=== PATIENT | female | born 2000 | race Caucasian/White ===

== ENCOUNTER → 2020-10-28 14:55 | Outpatient (BNVA) | payer BC, SELFPAY | PROVIDERS: Visit Provider Nurse Practitioner Family | DX: B37.9 Candidiasis, unspecified (principal) | CPT/HCPCS: 81000; 87086 ==

== ENCOUNTER → 2021-02-19 13:54 | Outpatient (BNVA) | payer SELFPAY | PROVIDERS: Visit Provider Nurse Practitioner Family | DX: N39.0 Urinary tract infection, site not specified (principal); B37.3 Candidiasis of vulva and vagina | CPT/HCPCS: 81000 ==

== ENCOUNTER → 2021-04-09 13:13 | Outpatient (BNVA) | payer SELFPAY | PROVIDERS: Visit Provider Nurse Practitioner | DX: N39.0 Urinary tract infection, site not specified (principal) | CPT/HCPCS: 81000; 87077; 87086; 87184 ==

== ENCOUNTER → 2021-05-05 15:32 | Outpatient (BNVA) | payer SELFPAY | PROVIDERS: Visit Provider Obstetrics & Gynecology | DX: N92.6 Irregular menstruation, unspecified (principal) | CPT/HCPCS: 82627; 83036; 83525; 84403; 84443 ==

== ENCOUNTER → 2021-08-06 16:25 | Outpatient (BNVA) | payer BC, SELFPAY | PROVIDERS: Visit Provider Family Medicine | DX: B37.9 Candidiasis, unspecified (principal) | CPT/HCPCS: 81000; 87491; 87591; 87661 ==

== ENCOUNTER → 2021-08-19 11:18 | Outpatient (BNVA) | payer BC, SELFPAY | PROVIDERS: Visit Provider Family Medicine | DX: B37.9 Candidiasis, unspecified (principal) | CPT/HCPCS: 36415; 86480; 86706; 86735; 86762; 86765; 86787 ==

== ENCOUNTER 2021-10-07 00:36 | Emergency (ER) | payer BC, MEDICAID, SELFPAY ==
[2021-10-07 00:49] VITALS: BP 139/83; PULSE 95; RESP 18; TEMP 37.1; O2SAT 99; BMI 38.7
--- NOTE | 2021-10-07 00:58 | ED_ITS ---
HPI - Ear Problem General: Chief complaint: Ear Stated complaint: trouble hearing Time Seen by Provider: 10/07/21 00:50 History of Present Illness: Patient comes in today for complaints of decreased hearing out of both ears. Patient had COVID-19 2 weeks ago and seemed to have gotten better but then over the weekend started having problems with her ears. Patient was seen at urgent care clinic within [facility] and was diagnosed with otitis externa. Patient reports minimal to no improvement of symptoms and worsening hearing loss. Associated symptoms: Reports ear or mastoid pain Review of Systems ENMT: Reports: ear or mastoid pain, change in hearing and nasal congestion PFS ED PFSH: Medical History No pertinent past medical history Surgical History History of tonsillectomy Hx of wisdom tooth extraction Family History Father Chronic kidney disease (CKD) Diabetes Hyperlipidemia Hypertension Mother Diabetes Brother Diabetes Denies family history of CAD (coronary artery disease) Clotting disorder Bleeding disorder Cancer Thyroid disease Stroke Social History Smoking and tobacco status: current every day smoker Physical Exam Const: COMMON NORMALS: alert HENMT: NOSE: Nasal discharge present purulent TYMPANIC MEMBRANE: TM abnormal TM laterality: bilateral dull and erythematous Resp: COMMON NORMALS: normal respiratory effort and clear to auscultation bilaterally AUSCULTATION: clear to auscultation bilaterally Cardio: COMMON NORMALS: regular rate and regular rhythm RATE: regular rate RHYTHM: regular rhythm Extremity: COMMON NORMALS: normal to inspection Neuro: SENSORIUM/ORIENTATION: Yes alert Skin: COMMON NORMALS: no rashes or lesions noted GENERAL SKIN EXAM: no rashes or lesions noted Course Vital Signs: Vital signs: Vital Signs Temperature 98.7 F 10/07/21 00:49 Pulse Rate 95 10/07/21 00:49 Respiratory Rate 18 10/07/21 00:49 Blood Pressure 139/83 10/07/21 00:49 Pulse Oximetry 99 10/07/21 00:49 MDM - Ear Medical Decision Making Patient comes in today for complaints of decreased hearing from bilateral ears. On exam both tympanic membranes are erythematous and dull. Right tympanic membrane is retracted while left membrane is bulging. Patient has significant amount of nasal drainage in both nares. Differential diagnosis includes eustachian tube dysfunction, rhinosinusitis, otitis media. Sounds like patient probably has a bacterial infection to her ear secondary to upper respiratory infection from 2 weeks ago. We will treat patient with Augmentin 875 twice daily for 10 days. Patient will also be given a short course of prednisone to help with the swelling and decreased hearing loss to open up the eustachian tubes for more relief of pressure. Patient reported understanding of care plan and need for follow-up or return to the ER. Discharge Plan Discharge Patient Disposition: Home Clinical Impression: Otitis media Qualifiers: Otitis media type: suppurative Chronicity: acute Laterality: bilateral Recurrence: non-recurrent Spontaneous tympanic membrane rupture: without spontaneous rupture Qualified Code(s): H66.003 - Acute suppurative otitis media without spontaneous rupture of ear drum, bilateral Condition: Stable Prescriptions: New Augmentin 875-125 mg tablet 1 tab PO BID Qty: 20 0RF prednisone 20 mg tablet 20 mg PO BID 5 Days Qty: 10 0RF No Action fluconazole [Diflucan] 150 mg tablet 150 mg PO Q3D Qty: 2 0RF Discharge Orders: Discharge ED (Routine); Ordered 10/07/21 Ordered By: Merrill Quiroz Discharge Diet: Usual diet Discharge Activity: Increase activity as tolerated Patient Instructions: Otitis Media - Adult Activity Restrictions/Additional Instructions: Take medications as directed. Drink plenty of fluids. Follow-up with primary care for further instruction. Return to ER for new concerns. Coding Level of Care Code ED Program Consultant for Chg Fwd History Problem Focused Exam Problem Focused Medical Decision Making Low Complexity Time Spent (min) 20
[2021-10-07] MEDS: amoxicillin-clav 875-125 mg Tablet 1 TAB PO (01:22)
[2021-10-07] MEDS: predniSONE 20 mg Tablet 40 MG PO (01:22)
[2021-10-07 01:26] VITALS: RESP 16
== END 2021-10-07 01:27 | disposition home or self-care (01) ==
PROVIDERS: Emergency Provider Nurse Practitioner Family
DX: H66.003 Acute suppurative otitis media without spontaneous rupture of ear drum, bilateral (principal); F17.210 Nicotine dependence, cigarettes, uncomplicated
CPT/HCPCS: 99283; J7512

== ENCOUNTER 2022-09-10 11:24 | Emergency (ER) | payer BC, MEDICAID, SELFPAY ==
[2022-09-10 11:50] VITALS: BP 157/73; PULSE 88; RESP 16; TEMP 36.6; O2SAT 98
[2022-09-10 13:16] LABS: Alanine Aminotransferase 19 U/L (0-33); Alkaline Phosphatase 117 U/L (35-105); Anion Gap 15.5 (5-19); Aspartate Amino Transferase 18 U/L (0-32); Blood Urea Nitrogen 8 mg/dL (6-20); Calcium 9.9 mg/dL (8.5-10.5); Carbon Dioxide 23 mmol/L (22-29); Chloride 102 mmol/L (98-107); Globulin 3.8 g/dL (1.3-4.6); Glomerular Filtration Rate 154.3 mL/min (90-130); Glucose 128 mg/dL (65-115); Osmolality Calculated 284 mOsm/kg (285-295); Potassium 3.5 mmol/L (3.5-5.1); Sodium 137 mmol/L (136-145); Total Bilirubin 0.2 mg/dL (0.15-1.2); Total Protein 7.8 g/dL (6.6-8.7)
--- NOTE | 2022-09-10 13:39 | PC.NURSE ---
PT IS STANDING IN LOBBY IN [facility].
[2022-09-10 15:05] LABS: HCG, Serum Qual Negative (Negative)
[2022-09-10 15:10] VITALS: BP 129/93; PULSE 104; RESP 14; O2SAT 99
[2022-09-10 15:16] LABS: Basophils % 0.4 %; Eosinophils # 0.2 10^3/uL (0.0-0.8); Hematocrit 37.9 % (37.0-47.0); Hemoglobin 10.9 g/dL (11.5-15.3); Lymphocytes # 4.6 10^3/uL (0.8-4.8); Lymphocytes % 43.3 %; Mean Corpuscular HGB Conc 28.8 g/dL (30.0-36.0); Mean Corpuscular Hemoglobin 22.1 pg (28.0-34.0); Mean Corpuscular Volume 76.9 fl (81-99); Mean Platelet Volume 10.4 fL (7.4-10.4); Monocytes # 0.4 10^3/uL (0.2-0.9); Monocytes % 3.4 %; Neutrophils # 5.32 10^3/uL (1.8-7.7); Neutrophils % 50.6 %; Nucleated Red Blood Cells % 0 %; Platelet Count 434 10^3/cmm (130-400); Red Blood Count 4.93 10^6/uL (4.1-5.3); Red Cell Distribution Width 17.2 % (12.1-15.1); White Blood Count 10.5 10^3/uL (4.0-10.0)
[2022-09-10 15:40] VITALS: BP 120/83; PULSE 88; RESP 19; O2SAT 94
[2022-09-10 15:40] LABS: Slide Review Slide Review Perform
[2022-09-10 15:45] LABS: HCG Qualitative Urine. Negative (Negative)
[2022-09-10 15:51] LABS: Add Urine Microscopic? YES; Bilirubin Urine Neg (Negative); Blood Urine 3+ (Negative); Glucose Urine UA Norm (Normal); Ketones Urine Negative (Negative); Leukocyte Esterase Urine Negative (Negative); Nitrate Urine Negative (Negative); Protein Urine Trace (Negative); Urine Appearance Hazy (CLEAR); Urine Color Yellow (Yellow); Urobilinogen Urine Norm (Negative); pH Urine 6 (5-7)
[2022-09-10 15:52] VITALS: BP 116/77; PULSE 91; RESP 16; O2SAT 96
--- NOTE | 2022-09-10 15:53 | USR_ITS ---
PROCEDURE INFORMATION: Exam: US Pelvis, Transvaginal Exam date and time: 09/10/2022 4:14 PM Age: 22 years old Clinical indication: Menstruation abnormalities; Excessive menstruation; Additional info: Vag bleed TECHNIQUE: Imaging protocol: Real-time transvaginal pelvic ultrasound with image documentation. Transvaginal imaging was used for better evaluation of the endometrium, adnexa, and/or cervix. COMPARISON: No relevant prior studies available. FINDINGS: Uterus: The uterus measures 9.1 x 3.3 x 5.1 cm. No uterine mass. Endometrial stripe measures 8 mm within normal limits. Right ovary/adnexa: Right ovary measures 3.8 x 4.3 x 2.4 cm with an estimated ovarian volume of 20 cc. Multiple peripheral ovarian follicles noted. Normal ovarian blood flow. Left ovary/adnexa: Left ovary measures 4.7 x 2.6 x 4.0 cm with an estimated ovarian volume of 26 cc. Multiple peripheral ovarian follicles noted. Normal ovarian blood flow. Intraperitoneal space: No free fluid. US/US transvaginal [id number] IMPRESSION: 1. No acute findings. 2. Enlarged ovaries with multiple ovarian follicles compatible with known history of polycystic ovarian syndrome.
[2022-09-10 15:54] LABS: Bacteria Urine 2+ /hpf; Mucus Urine 1+ /hpf; Squamous Epithelial Cell Urine 15-25 /hpf (0-5); WBC Urine RARE /hpf (0-5)
[2022-09-10 15:55] LABS: Add Urine Culture? No
[2022-09-10 16:00] VITALS: BP 116/89; O2SAT 98
[2022-09-10 17:05] VITALS: PULSE 94; RESP 16; O2SAT 98
--- NOTE | 2022-09-10 17:53 | W.ED.FEMALGU ---
HPI - Female Genitourinary General: Chief complaint: Vaginal Bleeding Stated complaint: vaginal bleeding 2xmonths Time Seen by Provider: 09/10/22 12:14 History of Present Illness: 35 yo female patient presents to ER with off and on vaginal bleeding x 2 months. Pt has hx of PCOS and was suppose to have US but has not done that yet. Pt denies any vaginal pain or abd pain. Pt states she has had some dizziness and tiredness from bleeding. Pt denies any fever, chest pain or SOB. Associated symptoms: Deny abdominal pain, headache(s) or nausea Review of Systems Const: Denies: fever(s), chills, body aches, change in appetite, change in weight, fatigue, malaise or diaphoresis GI: Denies: abdominal pain, nausea, vomiting, hematemesis, dysphagia, diarrhea, constipation, GI cramping, change in bowel habits or rectal pain : Denies: flank pain, difficulty voiding, dysuria, urinary frequency, urinary urgency, urinary hesitancy or hematuria Musc: Denies: neck pain, back pain, extremity pain, extremity swelling, joint pain, joint swelling, joint redness, joint warmth or deformity Skin/Breast: Denies: rash, pruritus, erythema, sores, new lesions, changes in skin color or dry skin Neuro: Denies: headache(s), numbness in extremities, weakness in extremities, sensory changes, lack of coordination, difficulty walking, frequent falls, dizziness, vertigo, confusion, behavioral changes, Slurred speech present, difficulty communicating thoughts or seizure-like activity Psych: Denies: anxiety, depression, suicidal ideation or homicidal ideation PFS ED PFSH: Medical History No pertinent past medical history Surgical History History of tonsillectomy Hx of wisdom tooth extraction Family History Father Chronic kidney disease (CKD) Diabetes Hyperlipidemia Hypertension Mother Diabetes Brother Diabetes Denies family history of CAD (coronary artery disease) Clotting disorder Bleeding disorder Cancer Thyroid disease Stroke Social History Smoking and tobacco status: current every day smoker Physical Exam Const: COMMON NORMALS: no acute distress, patient oriented x3, healthy appearing, alert and well nourished GENERAL APPEARANCE: cooperative, comfortable, well kempt and well developed; not ill appearing ORIENTATION/CONSCIOUSNESS: Yes awake, Yes oriented to person, Yes oriented to place and Yes oriented to time GI: COMMON NORMALS: Normal to inspection, nondistended, normoactive bowel sounds present, Soft to palpation, non-tender, No hepatosplenomegaly present, no masses and no bruits INSPECTION: Yes normal to inspection AUSCULTATION: Yes normoactive bowel sounds PALPATION: Yes Soft to palpation and Yes No hepatosplenomegaly present PERCUSSION: normal to percussion RECTAL EXAM: deferred : COMMON NORMALS: Yes no CVA tenderness BLADDER/KIDNEY EXAM: Yes no CVA tenderness Back/Pelvis: COMMON NORMALS: no CVA tenderness, thoracic and lumbar spine normal to inspection, no thoracic nor lumbar tenderness and thoraco-lumbar ROM normal THORACIC SPINE/UPPER BACK: Yes normal to inspection LUMBAR SPINE/LOWER BACK: Yes normal to inspection Extremity: COMMON NORMALS: normal to inspection, full ROM and capillary refill normal GENERAL: Yes normal exam except as noted Neuro: COMMON NORMALS: patient oriented x3, CN's II-XII intact bilaterally, moves all extremities, no focal motor deficits, no sensory deficits noted, deep tendon reflexes 2+ bilaterally and gait normal SENSORIUM/ORIENTATION: Yes alert, Yes oriented to person, Yes oriented to place and Yes oriented to time CRANIAL NERVES: Yes CN normal except as noted SPEECH: speech normal GAIT: Yes Normal gait present SENSORY EXAM: Yes extremities MOTOR EXAM: 5/5 motor strength present throughout Psych: COMMON NORMALS: mental status grossly normal, Normal thought process present, cooperative, normal affect, speech normal, activity/motor behavior normal, denies hallucinations, denies homicidal ideation and denies suicidal ideation APPEARANCE: Yes grossly normal and Yes well kempt ATTITUDE: Yes calm ACTIVITY/MOTOR BEHAVIOR: Yes appropriate eye contact SPEECH: Yes normal speech THOUGHT PROCESS: Normal thought process present THOUGHT CONTENT: Yes Normal thought content present ATTENTION/CONCENTRATION: Yes attention grossly intact MEMORY/COGNITION: Yes memory grossly intact INSIGHT: Good insight present (Psych) JUDGEMENT: Good judgement present (Psych) Skin: COMMON NORMALS: no rashes or lesions noted, no wounds, turgor normal, no jaundice, no petechiae and no mottling GENERAL SKIN EXAM: no rashes or lesions noted and turgor normal Course Vital Signs: Vital signs: Vital Signs Temperature 97.9 F 09/10/22 11:50 Pulse Rate 94 09/10/22 17:05 Respiratory Rate 16 09/10/22 17:05 Blood Pressure 116/89 09/10/22 16:00 Pulse Oximetry 98 09/10/22 17:05 Oxygen Delivery Me thod 09/10/22 15:10 MDM - Female Medical Decision Making 35 yo female patient presents to ER with off and on vaginal bleeding x 2 months. Pt has hx of PCOS and was suppose to have US but has not done that yet. Pt denies any vaginal pain or abd pain. Pt states she has had some dizziness and tiredness from bleeding. Pt denies any fever, chest pain or SOB. Pt H&H are stable. Urine is without evidence of infection. US reveals findings c/w PCOS. Pt has follow up scheduled with TOOL SETTER APPRENTICE I will have patient have H&H rechecked. Pts abd is soft and nontender. Lab Data 09/10/22 15:08 09/10/22 12:37 Radiology Impressions Transvaginal US 09/10/22 15:53 IMPRESSION: 1. No acute findings. 2. Enlarged ovaries with multiple ovarian follicles compatible with known history of polycystic ovarian syndrome. Laboratory Results WBC 10.5 10^3/uL (4.0-10.0) H 09/10/22 15:08 Corrected WBC Cancelled 09/10/22 12:37 RBC 4.93 10^6/uL (4.1-5.3) 09/10/22 15:08 Hgb 10.9 g/dL (11.5-15.3) L 09/10/22 15:08 Hct 37.9 % (37.0-47.0) 09/10/22 15:08 MCV 76.9 fl (81-99) L 09/10/22 15:08 MCH 22.1 pg (28.0-34.0) L 09/10/22 15:08 MCHC 28.8 g/dL (30.0-36.0) L 09/10/22 15:08 RDW 17.2 % (12.1-15.1) H 09/10/22 15:08 Plt Count 434 10^3/cmm (130-400) H 09/10/22 15:08 MPV 10.4 fL (7.4-10.4) 09/10/22 15:08 Gran % Cancelled 09/10/22 12:37 Neut % (Auto) 50.6 % 09/10/22 15:08 Lymph % (Auto) 43.3 % 09/10/22 15:08 [place] % (Auto) 3.4 % 09/10/22 15:08 Eos % (Auto) 2.0 % 09/10/22 15:08 Baso % (Auto) 0.4 % 09/10/22 15:08 Neut # (Auto) 5.32 10^3/uL (1.8-7.7) 09/10/22 15:08 Lymph # (Auto) 4.6 10^3/uL (0.8-4.8) 09/10/22 15:08 [place] # (Auto) 0.4 10^3/uL (0.2-0.9) 09/10/22 15:08 Eos # (Auto) 0.2 10^3/uL (0.0-0.8) 09/10/22 15:08 Baso # (Auto) 0.0 10^3/uL (0.0-0.1) 09/10/22 15:08 Absolute Gran (auto) Cancelled 09/10/22 12:37 Nucleated RBC % (auto) 0 % 09/10/22 15:08 Nucleated RBCs # 0.0 /100WBC 09/10/22 15:08 Sodium 137 mmol/L (136-145) 09/10/22 12:37 Potassium 3.5 mmol/L (3.5-5.1) 09/10/22 12:37 Chloride 102 mmol/L (98-107) 09/10/22 12:37 Carbon Dioxide 23 mmol/L (22-29) 09/10/22 12:37 Anion Gap 15.5 (5-19) 09/10/22 12:37 BUN 8 mg/dL (6-20) 09/10/22 12:37 Creatinine 0.5 mg/dL (0.5-0.9) 09/10/22 12:37 GFR Calculation 154.3 mL/min (90-130) H 09/10/22 12:37 Glucose 128 mg/dL (65-115) H 09/10/22 12:37 Calculated Osmolality 284 mOsm/kg (285-295) L 09/10/22 12:37 Calcium 9.9 mg/dL (8.5-10.5) 09/10/22 12:37 Total Bilirubin 0.2 mg/dL (0.15-1.2) 09/10/22 12:37 AST 18 U/L (0-32) 09/10/22 12:37 ALT 19 U/L (0-33) 09/10/22 12:37 Alkaline Phosphatase 117 U/L (35-105) H 09/10/22 12:37 Total Protein 7.8 g/dL (6.6-8.7) 09/10/22 12:37 Albumin 4.0 g/dL (3.5-5.2) 09/10/22 12:37 Globulin 3.8 g/dL (1.3-4.6) 09/10/22 12:37 HCG, Qual Negative (Negative) 09/10/22 15:37 Urine Color Yellow (Yellow) 09/10/22 15:37 Urine Appearance Hazy (CLEAR) A 09/10/22 15:37 Urine pH 6 (5-7) 09/10/22 15:37 Ur Specific [place] 1.010 (1.005-1.030) 09/10/22 15:37 Urine Protein Trace (Negative) 09/10/22 15:37 Urine Glucose (UA) Norm (Normal) 09/10/22 15:37 Urine Ketones Negative (Negative) 09/10/22 15:37 Urine Blood 3+ (Negative) H 09/10/22 15:37 Urine Nitrate Negative (Negative) 09/10/22 15:37 Urine Bilirubin Neg (Negative) 09/10/22 15:37 Urine Urobilinogen Norm mg/dL (Negative) 09/10/22 15:37 Ur Leukocyte Esterase Negative (Negative) 09/10/22 15:37 Urine RBC 5-10 /hpf (0-2) H 09/10/22 15:37 Urine WBC Rare /hpf (0-5) 09/10/22 15:37 Ur Squamous Epith Cells 15-25 /hpf (0-5) H 09/10/22 15:37 Amorphous Sediment Not Reportable 09/10/22 15:37 Urine Bacteria 2+ /hpf (NONE) H 09/10/22 15:37 Urine Mucus 1+ /hpf 09/10/22 15:37 Blood Type B Positive 09/10/22 12:37 Rho(D) Type Positive 09/10/22 12:37 Antibody Screen Negative 09/10/22 12:37 Discharge Plan Discharge Patient Disposition: Home Clinical Impression: PCOS (polycystic ovarian syndrome) Condition: Stable Prescriptions: No Action fluconazole [Diflucan] 150 mg tablet 150 mg PO Q3D Qty: 2 0RF Discharge Orders: Discharge ED (Routine); Ordered 09/10/22 Ordered By: Ann Meyers Discharge Diet: Advance as tolerated Discharge Activity: Increase activity as tolerated Patient Instructions: Abnormal (Dysfunctional) Uterine Bleeding (ED), Opioid Safety, Pain Management Activity Restrictions/Additional Instructions: Please follow up with TOOL SETTER APPRENTICE for recheck Please return to ER with any worsening of symptoms as provided on discharge instructions Coding Level of Care Code ED Continuous Improvement Analyst for Bhavya Licona
== END 2022-09-10 17:07 | disposition home or self-care (01) ==
PROVIDERS: Emergency Provider Registered Nurse
DX: E28.2 Polycystic ovarian syndrome (principal); F17.210 Nicotine dependence, cigarettes, uncomplicated
CPT/HCPCS: 36415; 76830; 80053; 81001; 81025; 84703; 85025; 86850; 86900; 99284

== ENCOUNTER 2022-09-16 09:00 | Outpatient (CLI) | payer BC, MEDICAID, SELFPAY ==
[2022-09-16 10:13] LABS: Thyroid Stimulating Hormone 3.53 uIU/mL (0.27-4.20)
[2022-09-18 14:35] LABS: Insulin ( Reference Lab Test) 54.5 uIU/mL
== END 2022-09-16 09:01 | disposition home or self-care (01) ==
PROVIDERS: Visit Provider Obstetrics & Gynecology
DX: E66.01 Morbid (severe) obesity due to excess calories (principal); N92.6 Irregular menstruation, unspecified; Z68.41 Body mass index [BMI] 40.0-44.9, adult
CPT/HCPCS: 36415; 83525; 84443

== ENCOUNTER 2022-10-17 08:14 | Outpatient (CLI) | payer BC, MEDICAID, SELFPAY ==
[2022-10-17 09:14] LABS: Thyroid Stimulating Hormone 2.63 uIU/mL (0.27-4.20)
== END 2022-10-17 08:15 | disposition home or self-care (01) ==
LOC: LAB 08:18
PROVIDERS: Visit Provider Obstetrics & Gynecology
DX: E16.1 Other hypoglycemia (principal); E66.01 Morbid (severe) obesity due to excess calories; Z68.41 Body mass index [BMI] 40.0-44.9, adult
CPT/HCPCS: 36415; 84443

== ENCOUNTER 2022-11-21 11:19 | Day surgery (SDC) | payer BC, MEDICAID, SELFPAY ==
[2022-11-20 08:11] VITALS: BMI 40.3
[2022-11-21] VITALS (8 sets, daily range): BP systolic 99–133; BP diastolic 62–82; PULSE 82–98; RESP 14–20; TEMP 36.1–36.8; O2SAT 95–99
[2022-11-21] MEDS: sodium chloride 0.9% 1,000 ML 30 ML IV (11:44)
--- NOTE | 2022-11-21 11:54 | W.PM.OPSUD ---
Surgery/Procedure H&P Update DATE OF PROCEDURE: November 21, 2022 DATE H&P PERFORMED: 11/16/22 H&P UPDATE INFORMATION: I have reviewed H&P completed within last 30 days, I have examined patient prior to procedure and No changes to prior documentation PREOP DIAGNOSIS: AUB, morbid obesity PLANNED PROCEDURE: Operation Date: 11/21/22 13:55 Proposed Procedures p Hysteroscopy, dilation and curettage with Antoinette [id number], [id number],N93.9(Not Applicable) - Bianca Davis MD s Dilation And Curettage (D&C)(Not Applicable) - Bianca Davis MD Related Problem List Diagnoses (1) Abnormal uterine bleeding (AUB): (2) Morbid obesity with BMI of 40.0-44.9, adult:
--- NOTE | 2022-11-21 12:51 | ANES.PREANE2 ---
Pre-Anesthetic Assessment Height/Weight: Height 1.68 m Weight 113.398 kg Temp Pulse Resp BP Pulse Ox O2 Del Method 97.1 F L 98 18 99/76 99 11/21/22 11:34 11/21/22 11:34 11/21/22 11:34 11/21/22 11:34 11/21/22 11:34 11/21/22 11:36 Preop Diagnosis: AUB, morbid obesity Operation Date: 11/21/22 13:55 Proposed Procedures p Hysteroscopy, dilation and curettage with [place]re [id number], [id number],N93.9(Not Applicable) - Bianca Davis MD s Dilation And Curettage (D&C)(Not Applicable) - Bianca Davis MD Familial anesthetic complications: none Was Beta Ava taken within 24 hours: N/A Was Clonidine taken within 24 hours: N/A Last intake: Intake Last Liquid Date 11/20/22 Last Liquid Time 23:00 Last Solid Date 11/20/22 Last Solid Time 19:00 Social No alcohol and No tobacco Exam alert, oriented x 3, clear to auscultation bilaterally and regular rate & rhythm Airway Submandibular: within normal limits Cervical ROM: within normal limits Mallampati: Class II Dentition: full Metabolic Morbid Obesity and Thyroid Disease Anesthetic Plan ASA status: 2 Anesthesia: General Medications/Allergies Home Medications Medication Instructions Recorded Confirmed Last Taken Type levothyroxine 50 mcg capsule 50 mcg PO DAILY #90 caps 09/22/22 11/20/22 11/20/22 Rx Allergies Allergy/AdvReac Type Severity Reaction Status Date / Time No Known Allergies Allergy Verified 11/21/22 11:42 Current Medications Generic Name Dose Route Start Last Admin Trade Name Freq PRN Reason Stop Dose Admin Sodium Chloride 1,000 mls @ 30 mls/hr 11/21/22 11:30 11/21/22 11:44 Sodium Chloride 0.9% IV 11/22/22 11:29 30 mls/hr .Q24H EMILEE Administration PFSH Anesthesia Medical History No pertinent past medical history Surgical History History of tonsillectomy Hx of wisdom tooth extraction Family History Father Diabetes Hypertension Mother Diabetes Brother Diabetes Denies family history of Colon cancer Ovarian cancer Heart disease Hypercholesteremia Breast cancer Uterine cancer Thyroid disease Stroke Female Reproductive History Date of last menstrual period: 11/10/22 Data Anesthesia Cardiac Studies: No Data to Display
[2022-11-21] MEDS: ceFAZolin 2,000 MG in sodium chloride 0.9% (plus) 50 ML 100 MG IV (13:05)
--- NOTE | 2022-11-21 14:01 | P.OP_ITS ---
Operative Report Date of procedure: November 21, 2022 Pre-op diagnosis: Preop Diagnosis AUB, morbid obesity Post-op diagnosis: same Post-op diagnosis: multiple polyps in the endometrium Procedure done: hysteroscopy, D&C, myosure Specimens removed/disposition: endometrial curettings to pathology Surgeon: Bianca Davis Anesthesia: General Estimated blood loss (mL): 5 IV fluids (mL): 800 Complications: none Findings: 9 week sized uterus 1400 ml of hysteroscopy deficit multiple endometrial polyps Condition: stable Disposition: PACU Procedure: The patient was taken to the operating room where monitored anesthesia was administered and to be adequate. She was prepped and draped in the normal preethi rile fashion in the dorsal lithotomy position in [facility]. A weighted speculum was placed into the vagina and the anterior lip of the cervix grasped with a single-tooth tenaculum. The uterus was sounded to 9 cm. The cervix was dilated to 16 [place]. The hysteroscope was advanced into the endometrial cavity. There were multiple polyps visualized. The MyoSure device was activated and the tissue was removed. Pictures were taken pre and post procedure. All instruments were removed. The patient tolerated the procedure well. Sponge lap and needle counts were correct x3. She was taken to the recovery room in stable condition.
--- NOTE | 2022-11-21 14:06 | PM.DCS ---
Discharge Providers Date of Admission: 11/21/22 Date of Discharge: November 21, 2022 Attending Provider at Admission: Dr. Davis Attending Provider at Discharge: Bianca Davis MD Diagnoses at Discharge Discharge Diagnosis (1) Abnormal uterine bleeding (AUB): Status: Acute (2) Morbid obesity with BMI of 40.0-44.9, adult: Status: Acute Reason for Visit Reason for Visit: N93.9 Hospital Course Hospital Course The patient is here for surgery. She did well postoperatively and was ready for discharge postoperatively. Discharge Data Studies Completed and Pending Pending at discharge Category Date Time Status Pathology: Surgical [PTH] Routine Pth 11/21/22 13:51 Ordered Vitals Last Vital Signs Temp 97.1 F L 11/21/22 11:34 Pulse 98 11/21/22 11:34 Resp 18 11/21/22 11:34 BP 99/76 11/21/22 11:34 Pulse Ox 99 11/21/22 11:34 O2 Del Method 11/21/22 11:36 Discharge Plan Discharge Condition: Stable Prescriptions: Continued levothyroxine 50 mcg capsule 50 mcg PO DAILY Qty: 90 4RF Discharge Orders: Discharge Order (Routine); Ordered 11/21/22 Ordered By: Bianca Davis Discharge Attestations Time Spent in Discharge Care*: less than 30 min Quality Metrics Clinical Quality Measures [ No reported AMI, CVA or VTE this stay] Coding Level of Care Code Acute Code for Chg Fwd Diagnoses Abnormal uterine bleeding (AUB) N93.9 Morbid obesity with BMI of 40.0-44.9, adult E66.01; Z68.41
--- NOTE | 2022-11-21 15:31 | ANE.PACU2 ---
Inpatient post-anesthesia follow up: Airway intact: Yes Vital signs: Temperature 97.6 F Pulse Rate 91 Respiratory Rate 14 Blood Pressure 113/75 Pulse Oximetry 99 Oxygen Delivery Me thod Room Air Oxygen Flow Rate Fraction of Inspir ed Oxygen Hydration adequate: Yes Nausea and vomiting: No Pain level: 3 Mental status: Baseline
== END 2022-11-21 15:15 | disposition home or self-care (01) ==
PROVIDERS: Visit Provider Obstetrics & Gynecology
PROC: 0UDB8ZZ Extraction of Endometrium, Via Natural or Artificial Opening Endoscopic (ICD-10-PCS; CPT 58558; principal; 2022-11-21 13:45)
PROC: (CPT 58120; 2022-11-21 13:45)
DX: N84.0 Polyp of corpus uteri (principal); E07.9 Disorder of thyroid, unspecified; E66.01 Morbid (severe) obesity due to excess calories; Z68.41 Body mass index [BMI] 40.0-44.9, adult
CPT/HCPCS: 58558; 81025; 88305; J0330; J0690; J1100; J1885; J2405; J2704; J3010; J7030

== ENCOUNTER 2023-07-05 02:05 | Emergency (ER) | payer BC, MEDICAID, SELFPAY ==
[2023-07-05 02:13] VITALS: BP 161/89; PULSE 122; RESP 16; O2SAT 94; BMI 37.1
[2023-07-05 02:20] VITALS: BP 161/89; PULSE 117; RESP 16; O2SAT 98
--- NOTE | 2023-07-05 02:39 | W.ED.ALLEREA ---
HPI - Allergic Reaction General: Chief complaint: Allergic Reaction Stated complaint: hives Time Seen by Provider: 07/05/23 02:12 History of Present Illness: HPI narrative: Patient presents to the ER with complaints of generalized hives and itching. Patient's never had episode like this before. Patient states she went to bed about 1:00 and woke up with this. Patient does states she drank an alcoholic drink that that this was the first time she ever drink anything like this. Patient denies any shortness of breath or problems swallowing. Review of Systems General: Reports: 10 or more systems reviewed and unremarkable except in HPI and below PFSH ED PFSH: Medical History No pertinent past medical history Surgical History History of tonsillectomy Hx of wisdom tooth extraction Family History Father Diabetes Hypertension Mother Diabetes Brother Diabetes Denies family history of Colon cancer Ovarian cancer Heart disease Hypercholesteremia Breast cancer Uterine cancer Thyroid disease Stroke Physical Exam Const: COMMON NORMALS: no acute distress, average body habitus, patient oriented x3, no limitations, healthy appearing, alert and well nourished HENMT: COMMON NORMALS: normocephalic, atraumatic, hearing grossly normal bilaterally, external ears normal, Normal external nose present, moist oral mucous membranes and oropharynx normal HEAD & SCALP: normocephalic and atraumatic NOSE: Normal external nose present EXTERNAL EAR: Yes external ears normal Eye: COMMON NORMALS: Equal, round and reactive pupils present, EOMs intact bilaterally, conjunctivae normal and no scleral icterus CONJUNCTIVA: Yes conjunctivae normal PUPIL: Yes Equal, round and reactive pupils present Neck/C-Spine: COMMON NORMALS: full ROM, no lymphadenopathy, supple, no meningeal signs, no JVD and Thyroid normal THYROID: Thyroid normal Lymph: LYMPHATIC: no lymphadenopathy noted Chest: COMMONS NORMALS: normal inspection of the chest and normal palpation of entire chest wall Resp: COMMON NORMALS: normal respiratory effort, No retractions, No use of accessory muscles and clear to auscultation bilaterally AUSCULTATION: clear to auscultation bilaterally Cardio: COMMON NORMALS: no JVD, regular rate, regular rhythm, S1 normal heart sound present, S2 normal heart sound present, No gallops present (Cardio), No clicks present (Cardio), No murmurs present (Cardio) and No rub (Cardio) RATE: regular rate RHYTHM: regular rhythm HEART SOUNDS: S1 normal heart sound present and S2 normal heart sound present GI: COMMON NORMALS: Normal to inspection, nondistended, normoactive bowel sounds present, Soft to palpation, non-tender, No hepatosplenomegaly present and no masses PALPATION: Yes Soft to palpation and Yes No hepatosplenomegaly present Neuro: COMMON NORMALS: patient oriented x3 SENSORIUM/ORIENTATION: Yes alert MENINGEAL SIGNS: Yes no meningeal signs Skin: NARRATIVE SKIN EXAM: Mild raised hives noted diffusely worse on chest abdomen and back. Course Vital Signs: Vital signs: Vital Signs Pulse Rate 115 H 07/05/23 03:10 Respiratory Rate 16 07/05/23 03:10 Blood Pressure 161/89 07/05/23 02:20 Pulse Oximetry 99 07/05/23 03:10 Oxygen Delivery Me thod Room Air 07/05/23 03:10 MDM - Allergic Reaction Medical Decision Making Patient presents to the ER with an unknown reaction which caused generalized hives. Patient was given 10 mg Decadron and 50 mg Benadryl IM. After a significant amount of time. Patient was rechecked patient is feeling much better and is ready to go home. Patient asking about a note for work. Differential Diagnosis Likely allergic reaction and urticaria; Unlikely anaphylaxis, angioedema, contact dermatitis, adverse reaction to drug or viral enanthem Medical Records I reviewed the patient's medical records. Lab Data I reviewed the patient's lab results. No radiology studies performed this visit Discharge Plan Discharge Patient Disposition: Home Clinical Impression: Urticaria Condition: Stable Prescriptions: No Action nystatin 100,000 unit/mL suspension 5 ml PO QID 10 Days Qty: 200 0RF Rx Instructions: swish and swallow levothyroxine 50 mcg capsule 50 mcg PO DAILY Qty: 90 4RF Discharge Orders: Discharge ED (Routine); Ordered 07/05/23 Ordered By: Junior Emanuel Patient Instructions: Urticaria (ED) Activity Restrictions/Additional Instructions: Please continue to use [id number] Benadryl as needed for your hives. Please follow-up with your family practice physician within the next 7 to 10 days or sooner as needed. Coding Level of Care Code ED Part Time Flexible Clerk for Bhavya Licona
[2023-07-05] MEDS: dexamethasone 10 mg/mL INJ IM (02:50)
[2023-07-05] MEDS: diphenhydrAMINE 50 mg/mL SDV 1mL IM (02:50)
[2023-07-05 03:10] VITALS: PULSE 115; RESP 16; O2SAT 99
[2023-07-05 03:30] VITALS: BP 117/70; PULSE 115; RESP 16; O2SAT 99
== END 2023-07-05 03:33 | disposition home or self-care (01) ==
PROVIDERS: Emergency Provider Emergency Medicine
DX: L50.9 Urticaria, unspecified (principal)
CPT/HCPCS: 96372; 99284; J1100; J1200

== ENCOUNTER → 2024-05-19 12:49 | Outpatient (BNVA) | payer OTHER, BC, MEDICAID, SELFPAY | PROVIDERS: Visit Provider Internal Medicine | DX: E11.9 Type 2 diabetes mellitus without complications (principal); E16.1 Other hypoglycemia | CPT/HCPCS: 36415; 80053; 80061; 83036 ==

== ENCOUNTER 2024-05-20 08:20 | Outpatient (CLI) | payer OTHER, BC, MEDICAID, SELFPAY ==
[2024-05-20 09:00] LABS: Creatinine Urine, Random 169 mg/dL (28-217); Microalbum Creatinine Ratio Ur 30 mg/dL (0-20); Microalbumin Random Urine 5 ug/dL (0-20)
== END 2024-05-20 08:21 | disposition home or self-care (01) ==
PROVIDERS: PCP Nurse Practitioner Family; Visit Provider Internal Medicine
DX: E11.9 Type 2 diabetes mellitus without complications (principal); E16.1 Other hypoglycemia
CPT/HCPCS: 82044

== ENCOUNTER → 2024-05-25 13:39 | Outpatient (BNVA) | payer OTHER, BC, MEDICAID, SELFPAY | PROVIDERS: PCP Nurse Practitioner Family; Visit Provider Registered Nurse Neonatal Intensive Care | DX: Z20.822 Contact with and (suspected) exposure to COVID-19 (principal) | CPT/HCPCS: 87426 ==

== ENCOUNTER 2024-07-12 17:25 | Emergency (ER) | payer OTHER, MEDICAID, SELFPAY ==
[2024-07-12 17:29] VITALS: BP 122/76; PULSE 108; RESP 17; TEMP 36.3; O2SAT 98; BMI 37.1
--- NOTE | 2024-07-12 17:54 | CTR_ITS ---
PROCEDURE INFORMATION: Exam: CT Abdomen And Pelvis Without Contrast Exam date and time: 07/12/2024 6:22 PM Age: 24 years old Clinical indication: Nausea and vomiting; Abdominal pain; Generalized; Patient HX: Diffuse abd pain with n/v x 3 days TECHNIQUE: Imaging protocol: Computed tomography of the abdomen and pelvis without contrast. Axial, coronal and sagittal reformatted images were created and reviewed. Radiation optimization: All CT scans at this facility use at least one of these dose optimization techniques: automated exposure control; mA and/or kV adjustment per patient size (includes targeted exams where dose is matched to clinical indication); or iterative reconstruction. COMPARISON: US transvaginal [id number] 09/10/2022 4:14 PM RADIATION DOSE METRICS: Total DLP (mGy-cm): 1218.96 FINDINGS: Liver: Marked hepatomegaly. Diffuse hepatic steatosis. Gallbladder and biliary ducts: No radiodense gallstones. No biliary ductal dilatation. Pancreas: Unremarkable. Spleen: Mild splenomegaly. Adrenal glands: Normal. No mass. Kidneys and ureters: Horseshoe kidney. No radiodense calculi. No hydronephrosis. Stomach and bowel: No bowel wall thickening. No obstruction. No pneumatosis. Appendix: Normal. Intraperitoneal space: No free fluid. No organized fluid collection. No free air. Vasculature: Unremarkable. No aneurysm. Lymph nodes: Small mesenteric lymph nodes, nonspecific in appearance. No pathologically enlarged lymph nodes. Urinary bladder: Unremarkable as visualized. Reproductive: Unremarkable. Bones/joints: No acute osseous abnormality. Mild degenerative changes. Bilateral L5 pars defects with grade 1 anterolisthesis of L5 on S1. Soft tissues: Unremarkable. CT/CT abdomen pelvis wo con [id number] IMPRESSION: 1. Markedly enlarged, fatty liver. 2. Mild splenomegaly. 3. Additional findings, as above.
[2024-07-12 18:28] LABS: Basophils % 0.2 %; Eosinophils # 0.2 10^3/uL (0.0-0.8); Eosinophils % 1.4 %; Hematocrit 39.6 % (36-47); Lymphocytes # 2.6 10^3/uL (0.8-4.8); Lymphocytes % 18.9 %; Mean Corpuscular HGB Conc 30.3 g/dL (30-55); Mean Corpuscular Hemoglobin 23.5 pg (27-33); Mean Corpuscular Volume 77.5 fl (85-98); Mean Platelet Volume 9.9 fL (7.4-10.4); Monocytes # 0.4 10^3/uL (0.2-0.9); Neutrophils # 10.63 10^3/uL (1.8-7.7); Neutrophils % 76.2 %; Nucleated Red Blood Cells % 0 %; Platelet Count 416 10^3/cmm (157-399); Red Blood Count 5.11 10^6/uL (3.85-5.65); Red Cell Distribution Width 15.8 % (12.1-15.1); White Blood Count 13.95 10^3/uL (3.29-11.43)
[2024-07-12 18:42] LABS: HCG, Serum Qual Negative (Negative)
[2024-07-12] MEDS: sodium chloride 0.9% 1,000 ML 999 ML IV (18:44)
[2024-07-12] MEDS: ketorolac 30 mg/mL INJ IVP (18:45)
[2024-07-12] MEDS: ondansetron 2 mg/ML SDV 2 mL 4 MG IVP (18:45)
[2024-07-12 18:47] LABS: Alanine Aminotransferase 24 U/L (0-33); Albumin Level 4.6 g/dL (3.5-5.2); Alkaline Phosphatase 129 U/L (35-105); Anion Gap 16.9 (5-19); Aspartate Amino Transferase 15 U/L (0-32); Blood Urea Nitrogen 11 mg/dL (6-20); Calcium 9.4 mg/dL (8.5-10.5); Carbon Dioxide 26 mmol/L (22-29); Chloride 100 mmol/L (98-107); Creatinine Clr Calc Pharmacy 176.4538; Globulin 3.1 g/dL (1.3-4.6); Glomerular Filtration Rate 122.8 mL/min (90-130); Glucose 106 mg/dL (65-115); Lipase 46 U/L (13-60); Osmolality Calculated 288 mOsm/kg (285-295); Potassium 3.9 mmol/L (3.5-5.1); Sodium 139 mmol/L (136-145); Total Bilirubin 0.4 mg/dL (0.15-1.2); Total Protein 7.7 g/dL (6.6-8.7)
--- NOTE | 2024-07-12 18:56 | W.ED.NAVMDI ---
HPI - Nausea/Vomiting/Diarrhea General: Chief complaint: Nausea/Vomiting/Diarrhea Stated complaint: vomiting, fever, constipated Time Seen by Provider: 07/12/24 17:54 History of Present Illness: 24-year-old female with a history of constipation. She presents with generalized abdominal pain, vomiting twice over the last few hours, and she says the vomit smells like feces now. She has not had a normal bowel movement in a couple of weeks she says. She has had tiny bowel movements here and there. No fever. No blood in the stool. No history of abdominal surgery. Related Data Previous Rx's Medication Instructions Recorded dulaglutide 0.75 mg/0.5 mL 0.75 mg (0.5 mL) SUBCUT Q7D 1 05/19/24 subcutaneous pen injector month #2 mL (Trulicity) dulaglutide 1.5 mg/0.5 mL 1.5 mg (0.5 mL) SUBCUT Q7D 1 month 05/19/24 subcutaneous pen injector #2 mL (Trulicity) dulaglutide 3 mg/0.5 mL 3 mg (0.5 mL) SUBCUT Q7D #2 mL 05/19/24 subcutaneous pen injector (Trulicity) lactulose 20 gram/30 mL oral 20 g (30 mL) PO BID #600 mL 07/12/24 solution Allergies Allergy/AdvReac Type Severity Reaction Status Date / Time No Known Allergies Allergy Verified 05/25/24 13:16 PFSH ED PFSH: Medical History No pertinent past medical history Surgical History History of tonsillectomy Hx of wisdom tooth extraction Family History Father Diabetes Hypertension Mother Diabetes Brother Diabetes Denies family history of Colon cancer Ovarian cancer Heart disease Hypercholesteremia Breast cancer Uterine cancer Thyroid disease Stroke Social History Smoking and tobacco/nicotine status: never used tobacco/nicotine Female Reproductive History: Date of last menstrual period: 06/10/24 Physical Exam Const: COMMON NORMALS: no acute distress GENERAL APPEARANCE: cooperative; not ill appearing and not frail appearing HENMT: COMMON NORMALS: normocephalic, atraumatic and Normal external nose present HEAD & SCALP: normocephalic and atraumatic FACE & SINUS: normal facial exam and face symmetric NOSE: Normal external nose present Eye: COMMON NORMALS: Equal, round and reactive pupils present and EOMs intact bilaterally PUPIL: Yes Equal, round and reactive pupils present Neck/C-Spine: GENERAL: Yes trachea midline Chest: CHEST: Yes Symmetrical chest wall rise Resp: COMMON NORMALS: normal respiratory effort, No retractions, No use of accessory muscles and clear to auscultation bilaterally AUSCULTATION: clear to auscultation bilaterally Cardio: COMMON NORMALS: regular rate and regular rhythm RATE: regular rate RHYTHM: regular rhythm GI: COMMON NORMALS: Normal to inspection, nondistended, normoactive bowel sounds present AUSCULTATION: Yes Hypoactive bowel sounds present PALPATION: Yes Tenderness to palpation present (GI) Extremity: COMMON NORMALS: no pedal edema Neuro: THEODORE COMA SCALE: document GCS findings Theodore coma scale eye opening: Spontaneous [place] coma scale verbal response: Orientated Theodore coma scale motor response: Obey commands Theodore coma scale total score: 15 SENSORY EXAM: Yes extremities (intact) Psych: COMMON NORMALS: speech normal SPEECH: Yes normal speech Skin: COMMON NORMALS: no rashes or lesions noted GENERAL SKIN EXAM: no rashes or lesions noted Course Vital Signs: Vital signs: Vital Signs Temperature 97.4 F L 07/12/24 17:29 Pulse Rate 94 07/12/24 20:03 Respiratory Rate 17 07/12/24 17:29 Blood Pressure 103/79 07/12/24 20:03 Pulse Oximetry 98 07/12/24 20:03 Oxygen Delivery Me thod Room Air 07/12/24 19:02 MDM - Nausea/Vomiting/Diarrhea Medical Decision Making White blood cell count is 14. Platelet count is 416. BMP is normal. hCG is negative. Lipase is 46. Liver enzymes are normal. CT shows enlarged fatty liver. Mild splenomegaly. Appendix is normal. No bowel obstruction. No other findings. She is not overly constipated. Lab Data 07/12/24 18:22 07/12/24 18:22 Radiology Impressions Abdomen/Pelvis CT 07/12/24 17:54 IMPRESSION: 1. Markedly enlarged, fatty liver. 2. Mild splenomegaly. 3. Additional findings, as above. Laboratory Results WBC 13.95 10^3/uL (3.29-11.43) H 07/12/24 18: RBC 5.11 10^6/uL (3.85-5.65) 07/12/24 18:22 Hgb 12.00 g/dL (11.27-16.99) 07/12/24 18:22 Hct 39.6 % (36-47) 07/12/24 18: MCV 77.5 fl (85-98) L 07/12/24 18: MCH 23.5 pg (27-33) L 07/12/24 18: MCHC 30.3 g/dL (30-55) 07/12/24 18: RDW 15.8 % (12.1-15.1) H 07/12/24 18: Plt Count 416 10^3/cmm (157-399) H 07/12/24 18:22 MPV 9.9 fL (7.4-10.4) 07/12/24 18:22 Neut % (Auto) 76.2 % 07/12/24 18:22 Lymph % (Auto) 18.9 % 07/12/24 18:22 [place] % (Auto) 3.0 % 07/12/24 18:22 Eos % (Auto) 1.4 % 07/12/24 18: Baso % (Auto) 0.2 % 07/12/24 18: Neut # (Auto) 10.63 10^3/uL (1.8-7.7) H 07/12/24 18:22 Lymph # (Auto) 2.6 10^3/uL (0.8-4.8) 07/12/24 18:22 [place] # (Auto) 0.4 10^3/uL (0.2-0.9) 07/12/24 18:22 Eos # (Auto) 0.2 10^3/uL (0.0-0.8) 07/12/24 18: Baso # (Auto) 0.0 10^3/uL (0.0-0.1) 07/12/24 18:22 Nucleated RBC % (auto) 0 % 07/12/24 18: Nucleated RBCs # 0.0 /100WBC 07/12/24 18: Sodium 139 mmol/L (136-145) 07/12/24 18:22 Potassium 3.9 mmol/L (3.5-5.1) 07/12/24 18:22 Chloride 100 mmol/L (98-107) 07/12/24 18:22 Carbon Dioxide 26 mmol/L (22-29) 07/12/24 18:22 Anion Gap 16.9 (5-19) 07/12/24 18:22 BUN 11 mg/dL (6-20) 07/12/24 18:22 Creatinine 0.6 mg/dL (0.5-0.9) 07/12/24 18:22 GFR Calculation 122.8 mL/min (90-130) 07/12/24 18:22 Glucose 106 mg/dL (65-115) 07/12/24 18:22 Calculated Osmolality 288 mOsm/kg (285-295) 07/12/24 18:22 Calcium 9.4 mg/dL (8.5-10.5) 07/12/24 18:22 Total Bilirubin 0.4 mg/dL (0.15-1.2) 07/12/24 18:22 AST 15 U/L (0-32) 07/12/24 18:22 ALT 24 U/L (0-33) 07/12/24 18:22 Alkaline Phosphatase 129 U/L (35-105) H 07/12/24 18:22 Total Protein 7.7 g/dL (6.6-8.7) 07/12/24 18:22 Albumin 4.6 g/dL (3.5-5.2) 07/12/24 18:22 Globulin 3.1 g/dL (1.3-4.6) 07/12/24 18:22 Lipase 46 U/L (13-60) 07/12/24 18:22 HCG, Qual Negative (Negative) 07/12/24 18:22 All radiology interpretation(s) finalized by discharge Discharge Plan Discharge Patient Disposition: Home Clinical Impression: Vomiting Condition: Stable Prescriptions: New lactulose 20 gram/30 mL solution 20 g PO BID Qty: 600 0RF No Action Trulicity 0.75 mg/0.5 mL pen injector 0.75 mg SUBCUT Q7D 30 Days Qty: 2 0RF Rx Instructions: inject 0.75mg weekly for one month Trulicity 1.5 mg/0.5 mL pen injector 1.5 mg SUBCUT Q7D 30 Days Qty: 2 0RF Rx Instructions: inject 1.5mg weekly for one month Trulicity 3 mg/0.5 mL pen injector 3 mg SUBCUT Q7D Qty: 2 1RF Rx Instructions: inject 3mg weekly Discharge Orders: Discharge ED (Routine); Ordered 07/12/24 Ordered By: Crescencio Christianson Referrals: Sangita Barnett FNP [Primary Care Provider] - 1-3 days Patient Instructions: Constipation (ED), Opioid Safety, Pain Management, Vomiting - Adult Activity Restrictions/Additional Instructions: Medication as directed, until bowel movements are easy and soft. Then you may decrease dosage or stop. Return for fever, vomiting liquids or medications despite treatment, worsening pain despite treatment, other concerning symptoms. Stand Alone Forms: Work/School Release Coding Level of Care Code ED Drawing Checker for Bhavya Licona
[2024-07-12 19:02] VITALS: BP 101/61; PULSE 90; O2SAT 96
[2024-07-12] MEDS: mineral oil 30 mL UDC PO (19:54)
[2024-07-12] MEDS: lactulose oral liq 20 gm/30 mL UDC 30 GM PO (19:54)
[2024-07-12] MEDS: magnesium hydroxide 30 mL UDC PO (19:54)
--- NOTE | 2024-07-12 20:02 | PC.NURSE ---
This nurse assumed care at shift change from Felicita BAIRD.
[2024-07-12 20:03] VITALS: BP 103/79; PULSE 94; O2SAT 98
== END 2024-07-12 20:04 | disposition home or self-care (01) ==
PROVIDERS: Family Medicine; Emergency Provider Emergency Medicine; PCP Nurse Practitioner Family
DX: R11.10 Vomiting, unspecified (principal); Z79.85 Long-term (current) use of injectable non-insulin antidiabetic drugs
CPT/HCPCS: 74176; 80053; 83690; 84703; 85025; 96374; 96375; 99285; J1885; J2405; J7030

== ENCOUNTER 2024-08-15 13:17 | Outpatient (CLI) | payer MEDICAID, SELFPAY ==
[2024-08-15 14:33] LABS: Estmated Average Glucose 151; Hemoglobin A1C 6.9 % (4.0-6.0)
[2024-08-15 14:43] LABS: Alanine Aminotransferase 22 U/L (0-33); Albumin Level 4.3 g/dL (3.5-5.2); Alkaline Phosphatase 117 U/L (35-105); Anion Gap 17.8 (5-19); Aspartate Amino Transferase 16 U/L (0-32); Blood Urea Nitrogen 11 mg/dL (6-20); Calcium 9.6 mg/dL (8.5-10.5); Carbon Dioxide 23 mmol/L (22-29); Chloride 99 mmol/L (98-107); Chol HDL Ratio 5.31 mg/dL (0.0-4.40); Cholesterol 191 mg/dL (0-200); Glomerular Filtration Rate 151.6 mL/min (90-130); Glucose 225 mg/dL (65-115); HDL Cholesterol 36 mg/dL (60-100); LDL Cholesterol Calculated 98 mg/dL (50-129); LDL HDL Ratio 2.72 RATIO (0.00-3.22); Osmolality Calculated 288 mOsm/kg (285-295); Potassium 3.8 mmol/L (3.5-5.1); Sodium 136 mmol/L (136-145); Total Bilirubin 0.3 mg/dL (0.15-1.2); Total Protein 8.3 g/dL (6.6-8.7); Triglycerides 286 mg/dL (0-150)
[2024-08-15 14:48] LABS: Creatinine Urine, Random 92 mg/dL (28-217); Microalbumin Random Urine 6 ug/dL (0-20)
[2024-08-15 14:51] LABS: Microalbum Creatinine Ratio Ur 65 mg/dL (0-20)
== END 2024-08-15 13:18 | disposition home or self-care (01) ==
LOC: LAB 13:18
PROVIDERS: PCP Nurse Practitioner Family; Visit Provider Internal Medicine
DX: E11.9 Type 2 diabetes mellitus without complications (principal); E16.1 Other hypoglycemia
CPT/HCPCS: 36415; 80053; 80061; 82044; 83036

== ENCOUNTER → 2024-09-30 11:02 | Outpatient (BNVA) | payer MEDICAID, SELFPAY | PROVIDERS: PCP Nurse Practitioner Family; Visit Provider Registered Nurse Neonatal Intensive Care | DX: R39.9 Unspecified symptoms and signs involving the genitourinary system (principal) | CPT/HCPCS: 81000 ==

== ENCOUNTER 2024-11-14 11:07 | Outpatient (CLI) | payer MEDICAID, SELFPAY ==
[2024-11-14 11:47] LABS: Alanine Aminotransferase 21 U/L (0-33); Albumin Level 4.3 g/dL (3.5-5.2); Alkaline Phosphatase 122 U/L (35-105); Anion Gap 18.8 (5-19); Aspartate Amino Transferase 21 U/L (0-32); Blood Urea Nitrogen 10 mg/dL (6-20); Calcium 9.8 mg/dL (8.5-10.5); Carbon Dioxide 23 mmol/L (22-29); Chloride 103 mmol/L (98-107); Chol HDL Ratio 4.83 mg/dL (0.0-4.40); Cholesterol 198 mg/dL (0-200); Globulin 4.1 g/dL (1.3-4.6); Glomerular Filtration Rate 151.6 mL/min (90-130); Glucose 112 mg/dL (65-115); HDL Cholesterol 41 mg/dL (60-100); LDL Cholesterol Calculated 124 mg/dL (50-129); LDL HDL Ratio 3.02 RATIO (0.00-3.22); Osmolality Calculated 292 mOsm/kg (285-295); Potassium 3.8 mmol/L (3.5-5.1); Sodium 141 mmol/L (136-145); Total Bilirubin 0.3 mg/dL (0.15-1.2); Total Protein 8.4 g/dL (6.6-8.7); Triglycerides 165 mg/dL (0-150)
[2024-11-14 11:55] LABS: Creatinine Urine, Random 62 mg/dL (28-217); Microalbumin Random Urine 3 ug/dL (0-20)
[2024-11-14 11:57] LABS: Estmated Average Glucose 148; Hemoglobin A1C 6.8 % (4.0-6.0)
[2024-11-14 12:15] LABS: Microalbum Creatinine Ratio Ur 48 mg/dL (0-20)
== END 2024-11-14 11:08 | disposition home or self-care (01) ==
PROVIDERS: Visit Provider Internal Medicine
DX: E11.9 Type 2 diabetes mellitus without complications (principal); E28.2 Polycystic ovarian syndrome; E66.01 Morbid (severe) obesity due to excess calories; Z68.41 Body mass index [BMI] 40.0-44.9, adult
CPT/HCPCS: 36415; 80053; 80061; 82044; 83036

== ENCOUNTER → 2024-12-18 11:17 | Outpatient (BNVA) | payer MEDICAID, SELFPAY | PROVIDERS: Visit Provider Obstetrics & Gynecology | DX: N94.6 Dysmenorrhea, unspecified (principal); Q51.3 Bicornate uterus | CPT/HCPCS: 76830 ==

== ENCOUNTER 2025-02-16 10:52 | Outpatient (CLI) | payer MEDICAID, SELFPAY ==
[2025-02-16 12:17] LABS: Creatinine Urine, Random 128 mg/dL (28-217); Microalbum Creatinine Ratio Ur 31 mg/dL (0-20); Microalbumin Random Urine 4 ug/dL (0-20)
[2025-02-16 12:20] LABS: Estmated Average Glucose 143; Hemoglobin A1C 6.6 % (4.0-6.0)
[2025-02-16 12:29] LABS: Alanine Aminotransferase 29 U/L (0-33); Albumin Level 4.6 g/dL (3.5-5.2); Alkaline Phosphatase 118 U/L (35-105); Anion Gap 20.6 (5-19); Aspartate Amino Transferase 21 U/L (0-32); Blood Urea Nitrogen 9 mg/dL (6-20); Calcium 9.5 mg/dL (8.5-10.5); Carbon Dioxide 21 mmol/L (22-29); Chloride 101 mmol/L (98-107); Chol HDL Ratio 4.33 mg/dL (0.0-4.40); Cholesterol 173 mg/dL (0-200); Globulin 4.1 g/dL (1.3-4.6); Glomerular Filtration Rate 151.6 mL/min (90-130); Glucose 70 mg/dL (65-115); HDL Cholesterol 40 mg/dL (60-100); LDL Cholesterol Calculated 110 mg/dL (50-129); LDL HDL Ratio 2.75 RATIO (0.00-3.22); Magnesium 1.9 mg/dL (1.7-2.3); Osmolality Calculated 285 mOsm/kg (285-295); Potassium 3.6 mmol/L (3.5-5.1); Sodium 139 mmol/L (136-145); Total Bilirubin 0.4 mg/dL (0.15-1.2); Total Protein 8.7 g/dL (6.6-8.7); Triglycerides 115 mg/dL (0-150)
[2025-02-16 12:43] LABS: Folate Level 13.2 ng/mL (4.8-37.3)
[2025-02-16 12:44] LABS: Vitamin B12 472 pg/mL (232-1245)
== END 2025-02-16 10:53 | disposition home or self-care (01) ==
PROVIDERS: Visit Provider Internal Medicine
DX: E11.9 Type 2 diabetes mellitus without complications (principal); E28.2 Polycystic ovarian syndrome; E66.01 Morbid (severe) obesity due to excess calories; Z68.41 Body mass index [BMI] 40.0-44.9, adult; E78.1 Pure hyperglyceridemia; L68.0 Hirsutism; N92.6 Irregular menstruation, unspecified; N93.9 Abnormal uterine and vaginal bleeding, unspecified; E16.1 Other hypoglycemia
CPT/HCPCS: 80053; 80061; 82044; 82607; 82746; 83036; 83735

== ENCOUNTER 2025-08-21 12:39 | Outpatient (CLI) | payer MEDICAID, SELFPAY ==
[2025-08-21 13:33] LABS: Hematocrit 33.8 % (36-47); Hemoglobin 9.90 g/dL (11.27-16.99); Mean Corpuscular HGB Conc 29.3 g/dL (30-55); Mean Corpuscular Hemoglobin 19.3 pg (27-33); Mean Corpuscular Volume 65.8 fl (85-98); Nucleated Red Blood Cells % 0 %; Platelet Count 519 10^3/cmm (157-399); Red Blood Count 5.14 10^6/uL (3.85-5.65); White Blood Count 10.29 10^3/uL (3.29-11.43)
[2025-08-21 14:22] LABS: Ferritin 8 ng/mL (15-150); Vitamin B12 492 pg/mL (232-1245)
== END 2025-08-21 12:40 | disposition home or self-care (01) ==
LOC: LAB 12:41
PROVIDERS: PCP Nurse Practitioner Family; Visit Provider Internal Medicine
DX: E28.2 Polycystic ovarian syndrome (principal); L68.0 Hirsutism; N92.6 Irregular menstruation, unspecified; N93.9 Abnormal uterine and vaginal bleeding, unspecified; N92.0 Excessive and frequent menstruation with regular cycle
CPT/HCPCS: 36415; 82306; 82607; 82627; 82670; 82728; 82746; 84270; 84402; 84403; 84630; 85025; 86900